=== PATIENT | female | born 1975 | race Caucasian/White ===

== ENCOUNTER 2016-11-28 07:33 | Day surgery (SDC) | payer OTHER ==
[2016-11-27 10:31] VITALS: BMI 39.0
[~2016-11-28 07:33] MED LIST: ceFAZolin SODIUM 1 GM VIAL IVPB ONE
[2016-11-28] MEDS ORDERED: PROPOFOL 20 ML ONE ×2 (07:37)
[2016-11-28] MEDS ORDERED: DEXAMETHASONE SOD PHOSPHATE 4 MG/1 ML VIAL ONE (07:37)
[2016-11-28] MEDS ORDERED: SUCCINYLCHOLINE CHLORIDE 200 MG/10 ML VIAL ONE (07:37)
[2016-11-28] MEDS ORDERED: ceFAZolin SODIUM 1 GM VIAL ONE (07:37)
[2016-11-28] MEDS ORDERED: KETOROLAC TROMETHAMINE 30 MG/1 ML VIAL ONE (07:37)
[2016-11-28] MEDS ORDERED: ROCURONIUM BROMIDE 50 MG/5 ML VIAL ONE (07:37)
[2016-11-28] MEDS ORDERED: SODIUM CHLORIDE 0.9% P/F 10 ML VIAL IJ ONE (07:37)
[2016-11-28] MEDS ORDERED: MIDAZOLAM HCL 2 MG/2 ML SINGLE DOSE VIAL ONE (07:38)
== END 2016-11-28 08:10 | disposition home or self-care (01) ==
LOC: JASUSAT 07:33 → EDSTATUS 08:00 → JASUSAT 08:10
PROVIDERS: ATTEND Obstetrics & Gynecology
PROC: 8E0KXY7 Examination of Musculoskeletal System (ICD-10-PCS; principal; 2016-11-28)
DX: Z53.8 Procedure and treatment not carried out for other reasons (principal)
CPT/HCPCS: 84703; 86850; 86900; 86901

== ENCOUNTER 2016-12-05 06:07 | Inpatient (IN) | payer OTHER ==
[2016-12-03 13:50] VITALS: BMI 39.0
[2016-12-05] MEDS ORDERED: ROPIVACAINE HCL 0.5% 30ML VIAL ONE (07:08)
[2016-12-05] MEDS ORDERED: MIDAZOLAM HCL 2 MG/2 ML SINGLE DOSE VIAL ONE ×2 (07:09)
--- NOTE | 2016-12-05 07:47 | HP ---
Admitting History and Physical - Admission Chief Complaint: Abnormal vaginal bleeding History of Present Illness: 41 yo Para 1, with abnormal vaginal bleeding associated with submucosal myoma is Pre op for abdominal hysterectomy. History Source: Patient Limitations to Obtaining History: No Limitations - Past Medical History ...LMP: 10/20/16 ...: No ...Para: 1 - Past Surgical History Past Surgical History: Yes: None - Smoking History Smoking history: Never smoked Have you smoked in the past 12 months: No - Alcohol/Substance Use Hx Alcohol Use: No History of Substance Use: reports: None - Social History Usual Living Arrangement: Yes: With Spouse History of Recent Travel: No Home Medications - Allergies Allergies/Adverse Reactions: Allergies Allergy/AdvReac Type Severity Reaction Status Date / Time albuterol Allergy tachycardia Verified 12/05/16 06:55 codeine Allergy "HEART Verified 12/05/16 06:55 PALPITATIONS,RASH" - Home Medications Home Medications: Ambulatory Orders Lisinopril 10 mg PO DAILY 01/24/16 Ibuprofen [Motrin -] 200 mg PO PRN PRN 11/27/16 Family Disease History - Family Disease History Family History: Unremarkable Review of Systems - Review of Systems Constitutional: reports: No Symptoms Eyes: reports: No Symptoms HENT: reports: No Symptoms Neck: reports: No Symptoms Cardiovascular: reports: No Symptoms Respiratory: reports: No Symptoms Gastrointestinal: reports: No Symptoms Genitourinary: reports: Vaginal Bleeding Breasts: reports: No Symptoms Reported Musculoskeletal: reports: No Symptoms Integumentary: reports: No Symptoms Neurological: reports: No Symptoms Endocrine: reports: No Symptoms Hematology/Lymphatic: reports: No Symptoms Psychiatric: reports: No Symptoms Pain Intensity: 0 Physical Examination Vital Signs: Vital Signs Temperature 97.9 F 12/05/16 06:50 Pulse Rate 100 H 12/05/16 06:50 Respiratory Rate 18 12/05/16 06:50 Blood Pressure 134/78 12/05/16 06:50 O2 Sat by Pulse Oximetry (%) 99 12/05/16 06:50 Constitutional: Yes: Well Nourished Eyes: Yes: Conjunctiva Clear HENT: Yes: Atraumatic, Normocephalic Neck: Yes: Supple, Trachea Midline Cardiovascular: Yes: Regular Rate and Rhythm Respiratory: Yes: Regular, CTA Bilaterally Gastrointestinal: Yes: Normal Bowel Sounds, Soft Breast(s): Yes: WNL Musculoskeletal: Yes: WNL Extremities: Yes: WNL Neurological: Yes: Alert, Oriented ...Motor Strength: WNL Psychiatric: Yes: Alert, Oriented Problem List - Problems (1) Menorrhagia Code(s): N92.0 - EXCESSIVE AND FREQUENT MENSTRUATION WITH REGULAR CYCLE (2) Submucous myoma of uterus Code(s): D25.0 - SUBMUCOUS LEIOMYOMA OF UTERUS Assessment/Plan Menorrhagia Submucosal myoma of the uterus Pre op for Hysterectomy Consent signed Anesthesia to see Pt
[2016-12-05] MEDS ORDERED: HYDROmorphone HCL CARPU-JECT 2 MG/1 ML DISP.SYRIN IVPB PRN (07:48)
[2016-12-05] MEDS ORDERED: IBUPROFEN 800 MG/8 ML IJ IVPB PRN (07:48)
[2016-12-05] MEDS ORDERED: ceFAZolin SODIUM 1 GM VIAL ONE (07:54)
[2016-12-05] MEDS ORDERED: LIDOCAINE HCL/PF 2% SDV 5ML VIAL ONE (07:54)
[2016-12-05] MEDS ORDERED: PROPOFOL 20 ML ONE ×2 (07:55)
[2016-12-05] MEDS ORDERED: ROCURONIUM BROMIDE 50 MG/5 ML VIAL ONE (07:55)
[2016-12-05] MEDS ORDERED: ceFAZolin SODIUM 1 GM VIAL IVPB ONE (08:02)
[2016-12-05] MEDS ORDERED: DEXAMETHASONE SOD PHOSPHATE 4 MG/1 ML VIAL ONE (08:42)
[2016-12-05] MEDS ORDERED: GLYCOPYRROLATE 0.2 MG/1 ML VIAL ONE (08:42)
[2016-12-05] MEDS ORDERED: NEOSTIGMINE METHYLSULFATE 0.5 MG/ML - 10 ML MDV ONE (08:42)
[2016-12-05] MEDS ORDERED: ONDANSETRON 4 MG/2 ML VIAL IVPUSH PRN (08:54)
[2016-12-05] MEDS ORDERED: DEXAMETHASONE SOD PHOSPHATE 4 MG/1 ML VIAL IVPUSH PRN (08:54)
[2016-12-05] MEDS ORDERED: PROMETHAZINE HCL 25 MG/1 ML VIAL IVPB PRN (08:54)
[2016-12-05] MEDS ORDERED: KETOROLAC TROMETHAMINE 30 MG/1 ML VIAL ONE (09:20)
--- NOTE | 2016-12-05 09:29 | OP ---
Operative Note - Note: Operative Date: 12/05/16 Pre-Operative Diagnosis: Menorrhagia / Leiomyoma of the uterus Operation: Abdominal Hysterectomy / Salpingectomy / Left Oophorectomy Findings: Leiomyoma of the uterus Surgeon: Liliya Pedraza Conservation Worker: Willa Menendez Anesthesia: General Specimens Removed: Uterus / Left ovary and tube / Portion of right tube Estimated Blood Loss (mls): 100
[2016-12-05] MEDS ORDERED: HYDROmorphone *PCA* 10MG/50ML DISP.SYRIN PCA ONE (09:43)
[2016-12-05] MEDS: HYDROmorphone *PCA* 10MG/50ML DISP.SYRIN PCA SCH (10:30)
[2016-12-05] MEDS: CEFAZOLIN 2 GM/D5W 50 ML IVPB SCH (17:16)
[2016-12-05] MEDS: LACTATED RINGERS SOLUTION 1,000 ML IV SCH (17:23)
[2016-12-06] MEDS: CEFAZOLIN 2 GM/D5W 50 ML IVPB SCH (00:18)
[2016-12-06] MEDS: LACTATED RINGERS SOLUTION 1,000 ML IV SCH ×2 (00:20→19:50)
[2016-12-06] MEDS ORDERED: PCA PUMP KEY 1 EACH EACH ONE ×2 (09:03→09:34)
--- NOTE | 2016-12-06 09:33 | PN ---
Progress Note (short form) - Note Progress Note: ANESTHESIA POST-OP CHECK 41F s/p abdominal hysterectomy, bilateral salpingectomy and left oophorectomy with bilateral TAP blocks under general anesthesia, POD #1. No acute complaints , tolerating PO liquids, denies N/V. Nur in place, not yet OOB. Pain 3-4/10 and tolerable. Vital Signs Temperature 98.3 F 12/06/16 06:00 Pulse Rate 86 12/06/16 06:00 Respiratory Rate 18 12/06/16 06:00 Blood Pressure 105/56 12/06/16 06:00 O2 Sat by Pulse Oximetry (%) 99 12/05/16 13:35 Active Medications Dexamethasone Sodium Phosphate (Decadron Injection -) 4 mg IVPUSH ONCE PRN PRN Reason: NAUSEA AND/OR VOMITING Diphenhydramine HCl (Benadryl Injection -) 12.5 mg IVPUSH ONCE PRN PRN Reason: FOR ITCHING Fentanyl (Sublimaze Injection -) 25 mcg IVPUSH [id number] PRN PRN Reason: PAIN Stop: 12/08/16 09:00 Last Admin: 12/05/16 10:00 Dose: 25 mcg Hydromorphone HCl (Dilaudid Injection -) 2 mg IVPB Q4H PRN PRN Reason: PAIN Hydromorphone HCl (Dilaudid Client Relations Specialist -) 0 mg FAN BLADE TRUER FAN BLADE TRUER LYNETTE PRN Reason: Protocol Stop: 12/12/16 08:55 Last Admin: 12/05/16 10:30 Dose: 10 mg Lactated Ringer's (Lactated Ringers Solution) 1,000 mls @ 125 mls/hr IV ASDIR LYNETTE Last Admin: 12/06/16 00:20 Dose: 125 mls/hr Dextrose/Lactated Ringer's (D5-Lr -) 1,000 mls @ 125 mls/hr IV ASDIR LYNETTE Ibuprofen (Caldolor Injection -) 800 mg IVPB Q8H PRN PRN Reason: FEVER Promethazine HCl (Phenergan Injection -) 12.5 mg IVPB Q6H PRN PRN Reason: NAUSEA AND/OR VOMITING Gen: awake, alert No apparent anesthesia complications. Pain well controlled, thu D/C FAN BLADE TRUER and switch to PO analgesics. Continue management as per primary team.
[2016-12-06] MEDS ORDERED: IBUPROFEN 400 MG TABLET (FP) PO PRN (11:38)
--- NOTE | 2016-12-06 11:50 | DS ---
Physical Examination Vital Signs: Vital Signs Temperature 98.3 F 12/06/16 06:00 Pulse Rate 86 12/06/16 06:00 Respiratory Rate 18 12/06/16 06:00 Blood Pressure 105/56 12/06/16 06:00 O2 Sat by Pulse Oximetry (%) 99 12/05/16 13:35 Constitutional: Yes: Well Nourished Eyes: Yes: Conjunctiva Clear HENT: Yes: Atraumatic, Normocephalic Neck: Yes: Supple, Trachea Midline Cardiovascular: Yes: Regular Rate and Rhythm Respiratory: Yes: Regular, CTA Bilaterally Gastrointestinal: Yes: Normal Bowel Sounds Breast(s): Yes: WNL Wound/Incision: Yes: Clean/Dry Neurological: Yes: Alert, Oriented Psychiatric: Yes: Alert, Oriented Discharge Summary Reason For Visit: MENORRHAGIA/SUMUCOSAL MYOMA Current Active Problems Menorrhagia (Acute) Submucous myoma of uterus (Acute) Procedures: Principal: Abdominal Hysterectomy / Salpingectomy / Left Oophorectomy Condition: Good - Instructions Diet, Activity, Other Instructions: Regular diet No driving, no lifting x 4 weeks F/U with MD in 7 days Referrals: Liliya Pedraza MD [Staff Physician] - Disposition: HOME - Home Medications Comprehensive Discharge Medication List: Ambulatory Orders Lisinopril 10 mg PO DAILY 01/24/16 Ibuprofen [Motrin -] 200 mg PO PRN PRN 11/27/16
[2016-12-06] MEDS ORDERED: ACETAMINOPHEN 325 MG TABLET (FP) PO PRN (11:55)
[2016-12-06] MEDS ORDERED: IBUPROFEN 600 MG TABLET (FP) PO PRN (11:55)
--- NOTE | 2016-12-06 12:07 | PN ---
Progress Note (short form) - Note Progress Note: 41 yo Para 1 with h/o Menorrhagia associated with Leiomyoma of the uterus, is status post Hysterectomy. She's doing well; out of be to chair. She tolerates liquid diet. ROS : No Nausea, no vomiting PE : Chest : CTA, no rales ABD : Dressing dry and intact. + incision pain No bleeding EXT : No calf tenderness ASS / PLAN : Post op care Ambulation Motrin PO Regular diet D/C IVF D/C Nur catheter F/U CBC D/C home after dinner Problem List - Problems (1) Menorrhagia Code(s): N92.0 - EXCESSIVE AND FREQUENT MENSTRUATION WITH REGULAR CYCLE (2) Submucous myoma of uterus Code(s): D25.0 - SUBMUCOUS LEIOMYOMA OF UTERUS
[2016-12-06 12:20] LABS: BASOPHIL 0.5 % (0-2.0); EOSINOPHIL 0.4 % (0-4.5); MCH 22.8 pg (25.7-33.7); MCHC 28.7 g/dl (32.0-36.0); MEAN CELL VOLUME 79.5 fl (80-96); MEAN PLT VOLUME 8.2 fl (7.5-11.1); PLATELET COUNT 301 K/MM3 (134-434); RDW 24.1 % (11.6-15.6); WHITE BLOOD COUNT 12.3 K/mm3 (4.0-10.0)
[2016-12-06 13:42] LABS: ANISOCYTOSIS 3+; HYPOCHROMIA 2+; MICROCYTOSIS 2+; PLATELET COMMENT2 NO CLOTTING DETECTED; PLATELET ESTIMATE ADEQUATE (NORMAL); POIKILOCYTOSIS 3+; POLYCHROMASIA 2+; TEAR DROP CELLS 1+
[2016-12-06] MEDS: LISINOPRIL 10 MG TABLET (FP) PO SCH (14:59)
[2016-12-06] MEDS: HYDROmorphone *PCA* 10MG/50ML DISP.SYRIN PCA SCH (19:52)
[2016-12-06] MEDS: DEXTROSE 5%-LACTATED RINGERS 1,000 ML IV SCH ×2 (19:52→19:53)
--- NOTE | 2016-12-06 21:07 | PN ---
Progress Note (short form) - Note Progress Note: 41 yo Para 1 with h/o Menorrhagia associated with Leiomyoma of the uterus, is status post Hysterectomy. Repeat CBC shows evidence of severe Anemia. She admits to Dizziness. ROS : No Nausea, no vomiting PE : Chest : CTA, no rales ABD : Dressing dry and intact. + incision pain No bleeding EXT : No calf tenderness ASS / PLAN : Status post Hysterectomy Severe Anemia Admit to TICKET SPECULATOR Transfuse 4 units of PRBC's Repeat CBC 4 hours after transfusion Problem List - Problems (1) Menorrhagia Code(s): N92.0 - EXCESSIVE AND FREQUENT MENSTRUATION WITH REGULAR CYCLE (2) Submucous myoma of uterus Code(s): D25.0 - SUBMUCOUS LEIOMYOMA OF UTERUS
--- NOTE | 2016-12-07 07:35 | PN ---
Progress Note (short form) - Note Progress Note: 41 yo Para 1 with h/o Menorrhagia associated with Leiomyoma of the uterus, is status post Hysterectomy. She received 4 units of PRBC's, She's doing well. ROS : No dizziness, no fatigue PE : Chest : CTA, no rales ABD : Dressing dry and intact. + incision pain No bleeding EXT : No calf tenderness ASS / PLAN : Status post Hysterectomy Severe Anemia Status post blood transfusion F/U repeat CBC D/C home Problem List - Problems (1) Menorrhagia Code(s): N92.0 - EXCESSIVE AND FREQUENT MENSTRUATION WITH REGULAR CYCLE (2) Submucous myoma of uterus Code(s): D25.0 - SUBMUCOUS LEIOMYOMA OF UTERUS
[2016-12-07 09:01] LABS: BASOPHIL 0.7 % (0-2.0); EOSINOPHIL 1.4 % (0-4.5); MCH 26.7 pg (25.7-33.7); MCHC 33.3 g/dl (32.0-36.0); MEAN CELL VOLUME 80.1 fl (80-96); MEAN PLT VOLUME 8.3 fl (7.5-11.1); NEUTROPHILS 80.8 % (42.8-82.8); PLATELET COUNT 272 K/MM3 (134-434); RDW 19.6 % (11.6-15.6); WHITE BLOOD COUNT 14.4 K/mm3 (4.0-10.0)
[2016-12-07 09:13] VITALS: BP 119/83; PULSE 88; TEMP 98.2
[2016-12-07] MEDS: LISINOPRIL 10 MG TABLET (FP) PO SCH (09:42)
[2016-12-07] MEDS ORDERED: BISACODYL 10 MG SUPP.RECT RC ONE (10:32)
[2016-12-07] MEDS ORDERED: BISACODYL 10 MG SUPP.RECT PR ONE (10:45)
--- NOTE | 2016-12-08 15:44 | PATH ---
Surgical Pathology Report Patient Name: JOSE ZUNIGA [facility]. Rec. #: [id number] /Age/Gender: 1975 (Age: 41) / F Account: [id number] Location: [facility] OBS/RETORT FEEDER GROUND BONE Taken: 12/05/2016 Received: 12/05/2016 Reported: 12/08/2016 Physicians: Liliya Pedraza M.D. Specimen(s) Received A: PORTION OF RIGHT FALLOPIAN TUBE B: UTERUS, LEFT OVARY, LEFT TUBE Clinical History Menorrhagia, fibroid uterus Final Diagnosis A. PORTION OF FALLOPIAN TUBE, RIGHT, PARTIAL SALPINGECTOMY: FIMBRIATED PORTION OF BENIGN FALLOPIAN TUBE WITH FOCAL FIBRINOHEMORRHAGIC ADHESIONS AND COMPLETE CROSS SECTION. B. UTERUS, LEFT TUBE AND OVARY, SUPRACERVICAL ABDOMINAL HYSTERECTOMY, SALPINGO-OOPHORECTOMY: CERVICAL STUMP: ENDOCERVIX WITHOUT SIGNIFICANT PATHOLOGIC CHANGES. ENDOMETRIUM: INACTIVE, WITH HISTOLOGIC FEATURES OF CHRONIC ENDOMETRITIS AND STROMAL CHANGES SUGGESTIVE OF EXOGENOUS HORMONE EFFECT. MYOMETRIUM: FOCAL ADENOMYOSIS (ADENOMYOMA), LEIOMYOMATA WITH FOCAL DEGENERATIVE CHANGES (LARGEST 7.0 CM). UTERINE SEROSA: WITHOUT SIGNIFICANT PATHOLOGIC CHANGES. LEFT FALLOPIAN TUBE: FIBRINOHEMORRHAGIC ADHESIONS AND SMAL PARATUBAL CYSTS. LEFT OVARY: CYSTIC FOLLICLES, SURFACE INCLUSION CYSTS. Electronically Signed Tommy Toscano M.D. Gross Description A. Received in formalin, labeled "portion of right tube" is a 1.2 cm in length fimbriated portion of fallopian tube. The outer surface is neal-pham and smooth. Sectioning reveals an unremarkable lumen. Motel Operator sections are submitted in 2 cassettes as follows: 1-fimbria; 2-cross sections of fallopian tube. B. Received in formalin, labeled "uterus, left tube, left ovary" is a 532 g supracervically amputated uterus with an attached left fallopian tube and left ovary. The specimen measures 11.5 cm from anterior to posterior, 9.8 cm from superior to inferior and 8.4 cm from left to right. The serosa is neal-pink and smooth with focal bulging subserosal nodules. The endometrial cavity measures 7 cm in length and 2 cm from cornu to cornu. The endometrium is hyperemic and averages 0.3 cm in thickness. The myometrium displays multiple intramural nodules, measuring up to 7.0 cm in greatest dimension. The cut surface of the subserosal and intramural nodules displays neal, firm to rubbery parenchyma with whorled architecture. No areas of hemorrhage or necrosis are identified. The remaining myometrium is neal-pink and measures up to 8 cm in thickness. The left fimbriated fallopian tube measures 4 cm in length. The outer surface is neal-pham with tubo-ovarian adhesions. Sectioning reveals a pinpoint lumen. The attached left cystic-appearing ovary measures 4.0 x 3.7 x 2.0 cm. The outer surface is neal-pink and smooth. The cut surface cystic and contains neal serous fluid. No excrescences are identified. Motel Operator sections are submitted in 16 cassettes as follows: 1-cervical stump margin of resection; 1-5-koustdff endomyometrium; 0-6-vcnkzqdmo endomyometrium; 8-5-rxgqicfhjq nodules; 5-51-whiezgl intramural nodule; 11-92-owbutfwszj intramural nodules; 13-left fallopian tube fimbria; 14-cross sections of left fallopian tube; 15-16-left ovary. 12/05/2016 [facility]12/05/2016
--- NOTE | 2016-12-23 21:19 | OP ---
DATE OF OPERATION: 12/05/2016 PREOPERATIVE DIAGNOSES: Menorrhagia, leiomyoma of the uterus. POSTOPERATIVE DIAGNOSES: Menorrhagia, leiomyoma of the uterus. PROCEDURE: Abdominal hysteroscopy, salpingectomy, and left oophorectomy. SURGEON: Liliya Pedraza MD DISPATCH SUPERVISOR: Willa Mcnamara MD ANESTHESIA: General. COMPLICATIONS: None. ESTIMATED BLOOD LOSS: 100 mL. PATHOLOGY: Uterus, left ovary and tube, and portion of the right tube. DESCRIPTION OF PROCEDURE: The patient was taken to the operating room where general anesthesia was administered. The patient was then prepped and draped in proper sterile fashion. A Pfannenstiel skin incision was made and carried down to the underlying layer of fascia. The fascia was incised bilaterally with cautery with the muscle of the anterior abdominal wall in the midline using the cautery. The peritoneum was identified. It was then grasped with 2 pickups, elevated, and entered sharply with the Metzenbaum scissors. The pelvis was examined, and there was an enlarged uterus noted along with a left enlarged ovarian cyst. Then 2 pean clamps were placed on the cornua and used for retraction. The round ligament on both sides was clamped using the LigaSure device, burned, and cut. The anterior leaf of the broad ligament was incised along the bladder reflection to the midline from both sides. The bladder was gently dissected off the lower uterine segment and the cervix with a sponge stick. The utero-ovarian ligament on the right side was clamped, burned, and cut using the LigaSure device. On the left side, the infundibulopelvic ligament was clamped, burned, and cut using the LigaSure device. Hemostasis was obtained. The uterine arteries were skeletonized bilaterally and clamped, burned, and cut using the LigaSure device. Both tubes were also removed. The cervix stump was closed with [id number]-[id number] stitches of 0 Vicryl. The pelvis was completely irrigated. Interceed was placed over the cervical stump, and the fascia was closed with running 0 Vicryl. Hemostasis was obtained. The skin was closed in subcuticular fashion with 3-0 Vicryl. The sponge, lap, needle, instrument counts were correct x2. The patient was taken to PACU in stable condition. Debi HUGO/[id number] MTDD
== END 2016-12-07 11:15 | disposition home or self-care (01) | DRG 519 ==
LOC: JASUSAT 06:07 → EDSTATUS 07:30 → J3W 13:30 → JASUSAT 14:03 → J3W 12-06 14:02
PROVIDERS: ADMIT Obstetrics & Gynecology; ATTEND Obstetrics & Gynecology
PROC: 0UTC0ZZ Resection of Cervix, Open Approach (ICD-10-PCS; 2016-12-05)
PROC: 0UT10ZZ Resection of Left Ovary, Open Approach (ICD-10-PCS; 2016-12-05)
PROC: 0UT70ZZ Resection of Bilateral Fallopian Tubes, Open Approach (ICD-10-PCS; 2016-12-05)
PROC: 0UT90ZZ Resection of Uterus, Open Approach (ICD-10-PCS; principal; 2016-12-05 07:30)
PROC: 30233N1 Transfusion of Nonautologous Red Blood Cells into Peripheral Vein, Percutaneous Approach (ICD-10-PCS; 2016-12-06)
DX: D25.0 Submucous leiomyoma of uterus (principal); N92.0 Excessive and frequent menstruation with regular cycle; D64.9 Anemia, unspecified
CPT/HCPCS: 36415; 36430; 84703; 85025; 86850; 86900; 86901; 86922; 88305-TC; 88307-TC; 94010; 94760; P9038; P9058

== ENCOUNTER 2018-03-09 16:25 | Emergency (ER) | payer OTHER ==
[2018-03-09 16:47] VITALS: BP 139/91; PULSE 88; TEMP 98.4; BMI 39.0
--- NOTE | 2018-03-09 16:47 | PDOC ---
Rapid Medical Evaluation Time Seen by Provider: 03/09/18 16:44 Medical Evaluation: Allergies Allergy/AdvReac Type Severity Reaction Status Date / Time albuterol Allergy tachycardia Verified 12/05/16 06:55 codeine Allergy "HEART Verified 12/05/16 06:55 PALPITATIONS,RASH" 03/09/18 16:44 Pt. presents with L ear pain, unable to hear out of her L ear for 4 days. Oozed reddish material Exam: ambulatory, NAD. No tenderness to the L tragus Orders: urine preg Pt. to proceed to FT for further evaluation
--- NOTE | 2018-03-09 17:06 | PDOC ---
History of Present Illness - General Chief Complaint: Ear Problem Stated Complaint: EAR PAIN Time Seen by Provider: 03/09/18 16:44 History Source: Patient Exam Limitations: No Limitations - History of Present Illness Initial Comments: 03/09/18 17:04 42-year-old woman with past medical history of NIDDM, hypertension presents emergency Department with decreased hearing and ear pain in her left ear for 4 days. Patient states she's been trying [id number]-[id number] earwax removal with minimal relief. Patient denies any fevers, chills, sore throats, headaches, dizziness. Past History - Past Medical History Allergies/Adverse Reactions: Allergies Allergy/AdvReac Type Severity Reaction Status Date / Time albuterol Allergy tachycardia Verified 03/09/18 16:44 codeine Allergy "HEART Verified 03/09/18 16:44 PALPITATIONS,RASH" Home Medications: Ambulatory Orders Lisinopril 10 mg PO DAILY 01/24/16 Anemia: Yes Asthma: ("SOMETHING "LIKE" ASTHMA) Cancer: No Cardiac Disorders: No CVA: No COPD: No CHF: No Dementia: No Diabetes: Yes GI Disorders: No Disorders: No HTN: Yes Hypercholesterolemia: Yes Liver Disease: No Seizures: No Thyroid Disease: No - Surgical History Cholecystectomy: Yes - Suicide/Smoking/Psychosocial Hx Smoking History: Never smoked Have you smoked in the past 12 months: No Information on smoking cessation initiated: No Hx Alcohol Use: No Drug/Substance Use Hx: No Substance Use Type: None Hx Substance Use Treatment: No Review of Systems - Review of Systems Able to Perform ROS?: Yes Is the patient limited Cymro proficient: No Constitutional: No: Symptoms Reported HEENTM: Yes: See HPI Respiratory: No: Symptoms reported Cardiac (ROS): No: Symptoms Reported ABD/GI: No: Symptoms Reported : No: Symptoms Reported Musculoskeletal: No: Symptoms Reported Integumentary: No: Symptoms Reported Neurological: No: Symptoms reported Endocrine: No: Symptoms Reported Hematologic/Lymphatic: No: Symptoms Reported *Physical Exam - Vital Signs Last Vital Signs Temp Pulse Resp BP Pulse Ox 98.4 F 88 18 139/91 100 03/09/18 16:44 03/09/18 16:44 03/09/18 16:44 03/09/18 16:44 03/09/18 16:44 - Physical Exam General Appearance: Yes: Appropriately Dressed. No: Apparent Distress HEENT: positive: Other (Impacted cerumen bilaterally) Respiratory/Chest: positive: Lungs Clear, Normal Breath Sounds. negative: Respiratory Distress, Accessory Muscle Use Neurologic: positive: Alert, Normal Response Medical Decision Making - Medical Decision Making 03/09/18 17:05 A/P: 42-year-old woman with impacted cerumen bilaterally Instill hydrogen peroxide into bilateral ears and reassess. 03/09/18 17:55 Impacted cerumen removed. TMs pearly pham with appropriate light reflex. External auditory canals clear without erythema or exudates. Patient states her hearing has improved since removal of cerumen. Patient verbalizes understanding of discharge instructions *DC/Admit/Observation/Transfer Diagnosis at time of Disposition: Impacted cerumen of both ears - Discharge Dispostion Disposition: HOME Condition at time of disposition: Stable Decision to Admit order: No - Referrals Referrals: Ngoc Lopez MD [Primary Care Provider] - - Patient Instructions Printed Discharge Instructions: Cerumen Impaction Additional Instructions: Return to the emergency department for any concerns. Evaluation here is in complete please follow-up with her primary doctor within the next 7 days for reevaluation. Print Language: BERMUDIAN - Post Discharge Activity
== END 2018-03-09 18:01 | disposition home or self-care (01) ==
LOC: JERFT 16:25
PROC: 3E1B78Z Irrigation of Ear using Irrigating Substance, Via Natural or Artificial Opening (ICD-10-PCS; principal; 2018-03-09)
PROC: 3E1B78Z Irrigation of Ear using Irrigating Substance, Via Natural or Artificial Opening (ICD-10-PCS; 2018-03-09)
DX: H61.23 Impacted cerumen, bilateral (principal); I10 Essential (primary) hypertension; E11.9 Type 2 diabetes mellitus without complications; E78.00 Pure hypercholesterolemia, unspecified; Z79.84 Long term (current) use of oral hypoglycemic drugs
CPT/HCPCS: 69209-50; 99281-25

== ENCOUNTER 2019-07-03 03:44 | Emergency (ER) | payer OTHER ==
[2019-07-03 04:17] VITALS: BP 158/93; PULSE 85; TEMP 98.3; BMI 43.0
[2019-07-03] MEDS ORDERED: diphenhydrAMINE HCL 25 MG CAPSULE (FP) PO ONE ×2 (05:15→05:35)
[2019-07-03] MEDS ORDERED: IPRATROPIUM BR 0.02% 0.5 MG/2.5 ML VIAL.NEB. NEB ONE ×2 (05:16→05:29)
[2019-07-03] MEDS ORDERED: DEXAMETHASONE LIQUID 0.5 MG/5 ML PO ONE (05:16)
--- NOTE | 2019-07-03 05:25 | PDOC ---
History of Present Illness - General Chief Complaint: Respiratory Stated Complaint: BRONCHITIS Time Seen by Provider: 07/03/19 04:07 - History of Present Illness Initial Comments: 07/03/19 05:21 43y/o F hx of NIDDM, HTN, HLD, asthma and anemia, presents to the ED with 3 days of nasal congestion and dry non-productive cough. She has been unable to sleep due to the congestion, and has had no relief with nyquil or use of cepacol. She denies any fevers, chills, chest pain,shortness of breath, hemopytsis, hx of blood clots, leg swelling. 07/03/19 05:25 Past History - Past Medical History Allergies/Adverse Reactions: Allergies Allergy/AdvReac Type Severity Reaction Status Date / Time albuterol [From Ventolin HFA] Allergy Verified 07/03/19 04:17 codeine Allergy "HEART Verified 07/03/19 04:17 PALPITATIONS,RASH" Home Medications: Ambulatory Orders Lisinopril 10 mg PO DAILY 01/24/16 Albuterol Sulfate Inhaler - [Ventolin HFA Inhaler -] 1 - 2 inh PO Q4H #1 inhaler 10/03/18 Loratadine 10 mg PO ONCE 30 Days #30 tab.rapdis 07/03/19 Anemia: Yes Asthma: ("SOMETHING "LIKE" ASTHMA) Cancer: No Cardiac Disorders: No CVA: No COPD: No CHF: No Dementia: No Diabetes: Yes GI Disorders: No Disorders: No HTN: Yes Hypercholesterolemia: Yes Liver Disease: No Seizures: No Thyroid Disease: No - Surgical History Cholecystectomy: Yes - Suicide/Smoking/Psychosocial Hx Smoking History: Never smoked Have you smoked in the past 12 months: No Information on smoking cessation initiated: No Hx Alcohol Use: No Drug/Substance Use Hx: No Substance Use Type: None Hx Substance Use Treatment: No Review of Systems - Review of Systems Constitutional: No: Chills, Fever HEENTM: No: Blurred Vision Respiratory: Yes: Cough. No: Hemoptysis Cardiac (ROS): No: Chest Pain ABD/GI: No: Abdominal Distended, Nausea, Vomiting : No: Burning, Dysuria Musculoskeletal: Yes: Back Pain Integumentary: No: Bruising, Change in Color Neurological: Yes: Headache. No: Numbness *Physical Exam - Vital Signs Last Vital Signs Temp Pulse Resp BP Pulse Ox 98.3 F 85 18 158/93 97 07/03/19 04:10 07/03/19 04:10 07/03/19 04:10 07/03/19 04:10 07/03/19 04:10 - Physical Exam Comments: 07/03/19 05:20 GENERAL: Awake, alert, and fully oriented, in no acute distress HEAD: No signs of trauma, normocephalic, atraumatic EYES: PERRLA, EOMI, sclera anicteric, conjunctiva clear ENT: Auricles normal inspection, hearing grossly normal, nares patent, oropharynx clear without exudates. Moist mucosa NECK: Normal ROM, supple, no lymphadenopathy, JVD, or masses LUNGS: no respiratory distress, no accessory muscle use, wheezes bilaterally HEART: Regular rate and rhythm, normal S1 and S2, no murmurs, rubs or gallops, peripheral pulses normal and equal bilaterally. ABDOMEN: Soft, nontender, normoactive bowel sounds. No guarding, no rebound. No masses EXTREMITIES : Normal inspection, Normal range of motion, no edema. No clubbing or cyanosis NEUROLOGICAL: Cranial nerves II through XII grossly intact. Normal speech, normal gait, no focal sensorimotor deficits SKIN: Warm, Dry, normal turgor, no rashes or lesions noted Medical Decision Making - Medical Decision Making 07/03/19 05:28 43y/o F hx of NIDDM, HTN, HLD, asthma and anemia, presents to the ED with 3 days of nasal congestion and dry non-productive cough. 07/03/19 05:33 Meds: diphenhydramine, ipratropium neb, decadron 07/03/19 06:24 Pt reassesed, improved and feeling better. Is ready to go home. Blood pressure on arrival was elevated will give home dose of lisinopril 10mg before going home. - Given prescription for loratadine to use at home. *DC/Admit/Observation/Transfer Diagnosis at time of Disposition: Acute allergic rhinitis, Nasal congestion - Discharge Dispostion Disposition: HOME Condition at time of disposition: Stable Decision to Admit order: No - Prescriptions Prescriptions: Loratadine 10 mg PO ONCE 30 Days #30 tab.rapdis - Referrals Referrals: Fallon Shields MD [Primary Care Provider] - - Patient Instructions Printed Discharge Instructions: DI for Allergic Rhinitis Additional Instructions: You were seen in the ER for nasal congestion Take the medications that have been prescribed to you as directed. RETURN TO THE ER: If you experience worsening symptoms, fever, chills, increasing cough. - Post Discharge Activity
[2019-07-03] MEDS ORDERED: DEXAMETHASONE SOD PHOSPHATE 10 MG/1 ML VIAL ONE (05:29)
[2019-07-03] MEDS ORDERED: LISINOPRIL 10 MG TABLET (FP) PO ONE (06:25)
[2019-07-03] MEDS ORDERED: LISINOPRIL 5 MG TABLET (FP) ONE (06:31)
--- NOTE | 2019-07-03 06:48 | PDOC ---
Attending Attestation - Resident Resident Name: Delicia Navarrete - ED Attending Attestation I have performed the following: I have examined & evaluated the patient, The case was reviewed & discussed with the resident, I agree w/resident's findings & plan - HPI HPI: 07/03/19 06:43 Pt comes with seasonal allergies. States that she gets loratadine regularly for this but she has none. She is congested. Afebrile. 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 She has no allergies to food or pets etc. Only pollen and change of weather allergies. No rashes and no N/D/V No chest pain. Pt has HTN because she states that she lacks sleep due to stuffed nose and that raises her BP; she is compliant with her lisinopril that normally keeps her BP in check. - Physicial Exam PE: 07/03/19 06:46 Agree with resident exam Afebrile PERRLA; Right TM wax occlusion; left TM clear Pharynx normal Heart RRR Lungs CTAB Abd soft NT ND - Medical Decision Making 07/03/19 06:47 Home with loratadine; pt feeling better with benadryl in the ER.
== END 2019-07-03 06:51 | disposition home or self-care (01) ==
LOC: JER 03:44
DX: J30.9 Allergic rhinitis, unspecified (principal); I10 Essential (primary) hypertension; E78.5 Hyperlipidemia, unspecified; E11.9 Type 2 diabetes mellitus without complications; J45.909 Unspecified asthma, uncomplicated; D64.9 Anemia, unspecified
CPT/HCPCS: 99282-25

== ENCOUNTER 2020-05-04 23:05 | Emergency (ER) | payer OTHER ==
[2020-05-04 23:12] VITALS: BMI 39.0
[2020-05-04] MEDS ORDERED: ALBUTEROL SO4 2.5/IPRATROPIUM 0.5 INH SOL 3 ML VIAL.NEB. NEB ONE ×2 (23:13→23:52)
[2020-05-04] MEDS ORDERED: predniSONE 20 MG TABLET (UD) PO ONE (23:13)
--- NOTE | 2020-05-04 23:13 | PDOC ---
Rapid Medical Evaluation Time Seen by Provider: 05/04/20 23:08 Medical Evaluation: Allergies Allergy/AdvReac Type Severity Reaction Status Date / Time albuterol [From Ventolin HFA] Allergy Verified 07/03/19 04:17 codeine Allergy "HEART Verified 07/03/19 04:17 PALPITATIONS,RASH" 05/04/20 23:08 Pt with PMH of asthma, presents to the ER for shortness of breath for one week. She states she only takes claratin for her asthma. Exam:expiatory wheezing b/l Orders: duoneb, prednisone, cxr Pt to go to the ER for further evaluation Discharge Disposition - Diagnosis Asthma Qualifiers: Asthma severity: mild Asthma persistence: intermittent Asthma complication type: with acute exacerbation Qualified Code(s): J45.21 - Mild intermittent asthma with (acute) exacerbation - Referrals - Patient Instructions - Post Discharge Activity
[2020-05-04] MEDS ORDERED: predniSONE 20 MG TABLET (UD) ONE (23:51)
--- NOTE | 2020-05-05 00:09 | PDOC ---
Attending Attestation - Resident Resident Name: Minnie Cortés - HPI HPI: 05/11/20 17:22 pt presents to the ED complaining of wheezing and shortness of breath similar to previous asthma exacerbations. Symptoms resolved after nebs and steroids. No previous hospitalizations for asthma 05/11/20 18:12 - Physicial Exam PE: 05/11/20 18:13 Agree with resident exam. patient is well appearing and in no acute distress. speaking in complete sentences. Lungs are clear. - Medical Decision Making 05/11/20 18:14 pt presents to the ED complaining of wheezing and shortness of breath similar to previous asthma exacerbations. Symptoms resolved after nebs and steroids. Will discharge home with steroids and instructions to return to the ED for worsening symptoms. Discharge - Discharge Information Problems reviewed: Yes Clinical Impression/Diagnosis: Asthma Qualifiers: Asthma severity: mild Asthma persistence: intermittent Asthma complication type: with acute exacerbation Qualified Code(s): J45.21 - Mild intermittent asthma with (acute) exacerbation Acute asthma exacerbation Qualifiers: Asthma severity: mild Asthma persistence: unspecified Qualified Code(s): J45.901 - Unspecified asthma with (acute) exacerbation Allergic rhinitis Qualifiers: Allergic rhinitis trigger: unspecified Allergic rhinitis seasonality: seasonal Qualified Code(s): J30.2 - Other seasonal allergic rhinitis Condition: Improved Disposition: HOME - Additional Discharge Information Prescriptions: predniSONE [Deltasone -] 40 mg PO DAILY 5 Days #10 tablet Albuterol Sulfate Inhaler - [Ventolin HFA Inhaler -] 1 - 2 inh PO Q4H #1 inhaler Cetirizine HCl [Zyrtec -] 10 mg PO DAILY #30 tablet - Follow up/Referral Referrals: Amando Soler II, DO [Primary Care Provider] - - Patient Discharge Instructions Patient Printed Discharge Instructions: DI for Asthma -- Adult, DI for Allergic Rhinitis Additional Instructions: You were seen in the ER today for asthma exacerbation. The results of your imaging today was normal. Please follow-up with your primary care doctor within 1-2 days to discuss your visit and make sure your symptoms have improved. Please return to the ER if you have any worsening shortness of breath or wheezing, development of fevers or chills, loss of consciousness, inability to tolerate food or fluids, or any other concerns. I have sent medications to your pharmacy. Please take these medications as prescribed. - Post Discharge Activity
--- NOTE | 2020-05-05 00:44 | PDOC ---
History of Present Illness - General Chief Complaint: Respiratory Stated Complaint: ASTHMA Time Seen by Provider: 05/04/20 23:08 History Source: Patient Exam Limitations: No Limitations - History of Present Illness Initial Comments: Pt is a 44 yo F, with PMH of intermittent asthma (albuterol MDI, no recent steroids), seasonal allergies, and HTN, who is presenting with complaints of dry cough x1 week, and chest tightness with wheezing today. Pt states she gets asthma exacerbations during the summer, and has run out of her albuterol MDI and loratadine. 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 Pt has not had an exacerbation or steroid use for over a year, and has never had an admission or intubation. Pt denies any fevers/chills, headache, vision changes, syncope, chest pain, palpitations, nausea/vomiting, abdominal pain, urinary symptoms, diarrhea/constipation, or leg swelling. Allergies: NKDA PCP: Dr. Soler Social: Pt denies any cigarette, alcohol, or drug use. Pt denies any recent travel or sick contacts. Surgical: no relevant history. Family: no relevant history. 05/05/20 20:05 Past History - Travel History Traveled outside of the country in the last 30 days: No Close contact w/someone who was outside of country & ill: No - Medical History Allergies/Adverse Reactions: Allergies Allergy/AdvReac Type Severity Reaction Status Date / Time albuterol [From Ventolin HFA] Allergy Verified 05/04/20 23:12 codeine Allergy "HEART Verified 05/04/20 23:12 PALPITATIONS,RASH" Home Medications: Ambulatory Orders Lisinopril 10 mg PO DAILY 01/24/16 Albuterol Sulfate Inhaler - [Ventolin HFA Inhaler -] 1 - 2 inh PO Q4H #1 inhaler 10/03/18 Loratadine 10 mg PO ONCE 30 Days #30 tab.rapdis 07/03/19 Albuterol Sulfate Inhaler - [Ventolin HFA Inhaler -] 1 - 2 inh PO Q4H #1 inhaler 05/05/20 Cetirizine HCl [Zyrtec -] 10 mg PO DAILY #30 tablet 05/05/20 predniSONE [Deltasone -] 40 mg PO DAILY 5 Days #10 tablet 05/05/20 Anemia: Yes Asthma: ("SOMETHING "LIKE" ASTHMA) Cancer: No Cardiac Disorders: No CVA: No COPD: No CHF: No Dementia: No Diabetes: Yes GI Disorders: No Disorders: No HTN: Yes Hypercholesterolemia: Yes Liver Disease: No Seizures: No Thyroid Disease: No - Surgical History Cholecystectomy: Yes - Psycho-Social/Smoking History Smoking History: Never smoked Have you smoked in the past 12 months: No - Substance Abuse Hx (Audit-C & DAST Scrn) How often the patient has a drink containing alcohol: Never Score: In Men: 4 or > Positive; In Women: 3 or > Positive: 0 Screen Result (Pos requires Nsg. Audit-10AR): Negative Respiratory Specific PMHX - Complaint Specific PMHX Hx Airway Support: No Hx Intubation: No Hx Asthma: Yes Hx Smoking Exposure: No Hx Allergic Rhinitis: Yes Hx Exposure to Respiratory Irritants: Yes (school bus exhaust) Hx Bronchitis: No Hx Pneumonia: No Hx Pulmonary Embolus: No Hx TB (Tuberculosis): No Review of Systems - Review of Systems Able to Perform ROS?: Yes Is the patient limited Greek proficient: No Constitutional: Yes: Weight Stable. No: Chills, Diaphoresis, Fever, Loss of Appetite, Malaise, Weakness HEENTM: No: Recent change in vision, Nose Congestion, Throat Pain, Throat Swelling, Difficulty Swallowing Respiratory: Yes: Shortness of Breath, Wheezing. No: Cough, Orthopnea, Productive cough, Hemoptysis Cardiac (ROS): Yes: Chest Tightness. No: Chest Pain, Edema, Irregular Heart Rate, Lightheadedness, Palpitations, Syncope ABD/GI: No: Constipated, Diarrhea, Nausea, Poor Appetite, Poor Fluid Intake, Vomiting : No: Burning, Dysuria, Flank Pain, Hematuria, Pain, Urgency Musculoskeletal: No: Back Pain Integumentary: No: Rash Neurological: No: Headache, Numbness, Weakness, Unsteady Gait, Dizziness Psychiatric: No: Sleep Pattern Change, Change in Appetite Endocrine: No: Increased Urine, Change in Weight Hematologic/Lymphatic: No: Anemia, Blood Clots, Easy Bleeding, Easy Bruising All Other Systems: Reviewed and Negative *Physical Exam - Vital Signs Last Vital Signs Temp Pulse Resp BP Pulse Ox 98 F 91 H 18 155/86 98 05/04/20 23:09 05/04/20 23:09 05/04/20 23:09 05/04/20 23:09 05/04/20 23:09 - Physical Exam Vitals stable, pt afebrile. Pt in NAD, obese body habitus. Pt alert and oriented x3. insurance claims adjuster generally intact, muscular strength and sensation intact. No midline spinal tenderness, step-offs, or crepitus. Head normocephalic, atraumatic. Eyes PERRLA, EOMI. Oropharynx without erythema or exudates, no LAD b/l. No nasal congestion. Hearing intact. Clear heart sounds, S1/S2, no JVD, b/l pedal edema, or heart murmur. Pt able to speak in full sentences. Mild expiratory wheezing b/l, with no crackles, rales, or accessory muscle use. No abdominal or CVA tenderness to palpation, no rebound, no guarding. Abdomen soft, non-distended, and with normoactive bowel sounds. Skin without jaundice or rash. 05/05/20 20:09 ED Treatment Course - Medications Given in the ED: ED Medications Discontinued Medications Generic Name Dose Route Start Last Admin Trade Name Freq PRN Reason Stop Dose Admin Albuterol/Ipratropium 1 amp 05/04/20 23:13 05/05/20 00:10 Duoneb - NEB 05/04/20 23:14 1 amp ONCE ONE Administration Prednisone 40 mg 05/04/20 23:13 05/05/20 00:05 Deltasone - PO 05/04/20 23:14 40 mg ONCE ONE Administration Medical Decision Making - Medical Decision Making Pt was seen at bedside, also will be seen by attending Dr. Gil. Pt presenting with wheezing, has mild intermittent asthma based on symptoms and frequency of medication use. Pt without hypoxia, PERC negative. Boggy nasal turbinates and congestion, likely exacerbated by weather and seasonal allergies. Provided 40 mg PO prednisone and albuterol nebs for improvement of wheezing. Will continue to reassess pt and monitor for symptomatic improvement. Chest x-ray without acute pathology (obtained due to dry cough x1 week, no b/l infiltrates suggestive of COVID) Pt improved after interventions. Ambulatory sat 98-99%. Provided albuterol inhaler, pred 40 mg x5 days, and zyrtec to pts pharmacy Discussed saline flushes, proper control of allergies to help with asthma exacerbation, will see PCP or return to ER if worsening. May need to increase to controller meds (low dose ICS) if symptoms more frequent. 05/05/20 20:10 Discharge - Discharge Information Problems reviewed: Yes Clinical Impression/Diagnosis: Asthma Qualifiers: Asthma severity: mild Asthma persistence: intermittent Asthma complication type: with acute exacerbation Qualified Code(s): J45.21 - Mild intermittent asthma with (acute) exacerbation Acute asthma exacerbation Qualifiers: Asthma severity: mild Asthma persistence: unspecified Qualified Code(s): J45.901 - Unspecified asthma with (acute) exacerbation Allergic rhinitis Qualifiers: Allergic rhinitis trigger: unspecified Allergic rhinitis seasonality: seasonal Qualified Code(s): J30.2 - Other seasonal allergic rhinitis Condition: Improved Disposition: HOME - Admission No - Additional Discharge Information Prescriptions: predniSONE [Deltasone -] 40 mg PO DAILY 5 Days #10 tablet Albuterol Sulfate Inhaler - [Ventolin HFA Inhaler -] 1 - 2 inh PO Q4H #1 inhaler Cetirizine HCl [Zyrtec -] 10 mg PO DAILY #30 tablet - Follow up/Referral Referrals: Amando Soler II, DO [Primary Care Provider] - - Patient Discharge Instructions Patient Printed Discharge Instructions: DI for Asthma -- Adult, DI for Allergic Rhinitis Additional Instructions: You were seen in the ER today for asthma exacerbation. The results of your imaging today was normal. Please follow-up with your primary care doctor within 1-2 days to discuss your visit and make sure your symptoms have improved. Please return to the ER if you have any worsening shortness of breath or wheezing, development of fevers or chills, loss of consciousness, inability to tolerate food or fluids, or any other concerns. I have sent medications to your pharmacy. Please take these medications as prescribed. - Post Discharge Activity
[2020-05-05 01:52] VITALS: BP 133/81; PULSE 82; TEMP 97.6
== END 2020-05-05 01:35 | disposition home or self-care (01) ==
LOC: JER 23:05
PROC: 3E0F7GC Introduction of Other Therapeutic Substance into Respiratory Tract, Via Natural or Artificial Opening (ICD-10-PCS; principal; 2020-05-04)
DX: J45.21 Mild intermittent asthma with (acute) exacerbation (principal); J30.2 Other seasonal allergic rhinitis
CPT/HCPCS: 71046-TC-FY; 99283-25

== ENCOUNTER 2021-10-07 13:39 | Emergency (ER) | payer OTHER ==
[2021-10-07 13:47] VITALS: BP 135/82; PULSE 96; TEMP 98.9; BMI 31.2
[2021-10-07] MEDS ORDERED: METHOCARBAMOL 500 MG TABLET PO ONE (14:50)
[2021-10-07] MEDS ORDERED: KETOROLAC TROMETHAMINE 30 MG/1 ML VIAL IM ONE (14:50)
[2021-10-07] MEDS ORDERED: KETOROLAC TROMETHAMINE 30 MG/1 ML VIAL ONE (14:55)
[2021-10-07] MEDS ORDERED: METHOCARBAMOL 500 MG TABLET ONE (14:55)
== END 2021-10-07 15:04 | disposition home or self-care (01) ==
LOC: JERFT 13:39
PROC: 3E0233Z Introduction of Anti-inflammatory into Muscle, Percutaneous Approach (ICD-10-PCS; principal; 2021-10-07)
DX: M25.551 Pain in right hip (principal); M54.50 Low back pain, unspecified
CPT/HCPCS: 73523-TC-FY; 99284-25

== ENCOUNTER 2022-04-19 22:02 | Inpatient (IN) | payer OTHER ==
[2022-04-19 22:27] VITALS: BMI 29.9
[2022-04-20] MEDS ORDERED: ACETAMINOPHEN 1000 MG/100 ML BAG IVPB ONE (00:16)
[2022-04-20] MEDS ORDERED: FAMOTIDINE 20 MG/50 ML IVPB 20 MG/50 ML MG IVPB ONE ×2 (00:16→02:17)
[2022-04-20] MEDS ORDERED: ONDANSETRON 4 MG/2 ML VIAL IVPUSH ONE (00:16)
[2022-04-20] MEDS ORDERED: MAG HYDROX/AL HYDROX/SIMETH -MYLANTA- ORAL SUSPENSION PO ONE (00:16)
[2022-04-20 01:20] LABS: CHLORIDE 96 mmol/L (98-107); SODIUM 134 mmol/L (136-145)
[2022-04-20 01:22] LABS: CALCIUM 9.5 mg/dL (8.5-10.1)
[2022-04-20 01:23] LABS: ALBUMIN 3.8 g/dl (3.4-5.0); ANION GAP 11 MMOL/L (8-16); BLOOD UREA NITROGEN 12.3 mg/dL (7-18); CO2 27 mmol/L (21-32); LIPASE 127 U/L (73-393)
[2022-04-20 01:26] LABS: CREATININE 0.9 mg/dL (0.55-1.3); SGOT/AST 26 U/L (15-37); SGPT/ALT 50 U/L (13-61)
[2022-04-20 01:27] LABS: BILIRUBIN,TOTAL 0.5 mg/dL (0.2-1); TOT PROT 7.7 g/dl (6.4-8.2)
[2022-04-20 01:28] LABS: ALK PHOS 126 U/L (45-117)
[2022-04-20 01:48] LABS: HEMATOCRIT 44.4 % (32.4-45.2); HEMOGLOBIN 14.9 GM/dL (10.7-15.3); MCHC 33.5 g/dl (32.0-36.0); MEAN CELL VOLUME 86.5 fl (80-96); MEAN PLT VOLUME 8.5 fl (7.5-11.1); PLATELET COUNT 289 10^3/uL (134-434); RBC 5.13 M/mm3 (3.60-5.2); RDW 13.6 % (11.6-15.6); WHITE BLOOD COUNT 25.8 K/mm3 (4.0-10.0)
[2022-04-20 01:50] LABS: GLUCOSE,RANDOM 489 mg/dL (74-106)
[2022-04-20] MEDS ORDERED: ACETAMINOPHEN INJECTION 100 ML IVPB ONE (02:17)
[2022-04-20] MEDS ORDERED: MAG HYDROX/AL HYDROX/SIMETH 30 ML UNIT-DOSE CUP ONE (02:17)
[2022-04-20] MEDS ORDERED: ONDANSETRON 4 MG/2 ML VIAL ONE (02:17)
[2022-04-20] MEDS ORDERED: INSULIN REGULAR HUMAN 100 UNITS/ML *VIAL SQ ONE (02:30)
[2022-04-20 02:36] LABS: ANISOCYTOSIS 1+; MACROCYTOSIS 1+; ROULEAU 1+
[2022-04-20 06:22] LABS: PH,URINE 5.5 (5.0-8.0); URINE APPEARANCE CLEAR; URINE BILIRUBIN NEGATIVE (NEGATIVE); URINE COLOR YELLOW; URINE GLUCOSE (UA) 3+ (NEGATIVE); URINE KETONE TRACE (NEGATIVE); URINE LEUK ESTERASE NEGATIVE (NEGATIVE); URINE NITRITE NEGATIVE (NEGATIVE); URINE PROTEIN NEGATIVE (NEGATIVE); URINE UROBILINOGEN 0.2 mg/dL (0.2-1.0)
[2022-04-20] MEDS ORDERED: ACETAMINOPHEN 1000 MG/100 ML BAG IVPB PRN (08:57)
[2022-04-20] MEDS: LISINOPRIL 10 MG TABLET PO SCH (10:22)
[2022-04-20] MEDS: METHOCARBAMOL 500 MG TABLET PO SCH ×2 (10:23→21:53)
[2022-04-20] MEDS: SODIUM CHLORIDE 1,000 ML IV SCH ×2 (10:38→21:53)
[2022-04-20] MEDS: INSULIN SLIDING SCALE (NOVOLOG) 1 VIAL SQ SCH ×2 (12:19→17:12)
[2022-04-20 13:22] LABS: HEMOGLOBIN 13.7 GM/dL (10.7-15.3); MCH 28.7 pg (25.7-33.7); MCHC 33.4 g/dl (32.0-36.0); MEAN CELL VOLUME 85.9 fl (80-96); MEAN PLT VOLUME 8.3 fl (7.5-11.1); PLATELET COUNT 271 10^3/uL (134-434); RBC 4.77 M/mm3 (3.60-5.2); RDW 13.6 % (11.6-15.6); WHITE BLOOD COUNT 20.2 K/mm3 (4.0-10.0)
[2022-04-20 13:33] LABS: CHLORIDE 99 mmol/L (98-107); SODIUM 135 mmol/L (136-145)
[2022-04-20 13:35] LABS: ANION GAP 8 MMOL/L (8-16); CALCIUM 9.3 mg/dL (8.5-10.1); CO2 28 mmol/L (21-32)
[2022-04-20 13:39] LABS: CREATININE 0.7 mg/dL (0.55-1.3)
[2022-04-20 13:43] LABS: BLOOD UREA NITROGEN 8.7 mg/dL (7-18)
[2022-04-20 13:52] LABS: GLUCOSE,RANDOM 410 mg/dL (74-106)
[2022-04-20 14:32] LABS: ANISOCYTOSIS 0; HELMET CELLS 0; HOWELL-JOLLY BODIES 0; MACROCYTOSIS 0; OVALOCYTE 0; ROULEAU 0; SICKELED CELLS 0; TARGET CELLS 0; TEAR DROP CELLS 0; TOXIC GRANULATION 0
[2022-04-20] MEDS ORDERED: LORazepam 2 MG/ML SDV VIAL IVPUSH ONE (16:00)
[2022-04-20] MEDS: INSULIN (LEVEMIR) 100 UNITS/ML UNITS SQ SCH (21:52)
[2022-04-21] MEDS: SODIUM CHLORIDE 1,000 ML IV SCH ×2 (05:25→23:09)
[2022-04-21] MEDS ORDERED: INSULIN (NOVOLOG) ASPART 100 UNITS/ML 10ML VIAL ONE ×3 (06:18→20:51)
[2022-04-21] MEDS: glyBURIDE 5 MG TABLET PO SCH (06:20)
[2022-04-21] MEDS: INSULIN SLIDING SCALE (NOVOLOG) 1 VIAL SQ SCH ×3 (06:21→17:04)
[2022-04-21] MEDS: METHOCARBAMOL 500 MG TABLET PO SCH ×2 (10:29→21:14)
[2022-04-21] MEDS: INSULIN (LEVEMIR) 100 UNITS/ML UNITS SQ SCH ×2 (10:30→21:13)
[2022-04-21] MEDS: LISINOPRIL 10 MG TABLET PO SCH (10:30)
[2022-04-21] MEDS ORDERED: LORazepam 2 MG TABLET PO PRN (10:36)
[2022-04-21] MEDS ORDERED: LORazepam 1 MG TABLET PO PRN (10:53)
[2022-04-21] MEDS: NYSTATIN/TRIAMCINOLONE TOPICAL CREAM 15 GM TUBE TP SCH (21:18)
[2022-04-22] MEDS ORDERED: LORATADINE 10 MG TABLET PO ONE (01:41)
[2022-04-22] MEDS ORDERED: INSULIN (NOVOLOG) ASPART 100 UNITS/ML 10ML VIAL ONE (05:59)
[2022-04-22] MEDS: glyBURIDE 5 MG TABLET PO SCH (06:01)
[2022-04-22] MEDS: INSULIN SLIDING SCALE (NOVOLOG) 1 VIAL SQ SCH ×3 (06:04→16:44)
[2022-04-22] MEDS: METHOCARBAMOL 500 MG TABLET PO SCH (10:13)
[2022-04-22] MEDS: LISINOPRIL 10 MG TABLET PO SCH (10:13)
[2022-04-22] MEDS: INSULIN (LEVEMIR) 100 UNITS/ML UNITS SQ SCH (10:13)
[2022-04-22] MEDS: SODIUM CHLORIDE 1,000 ML IV SCH (10:19)
[2022-04-22] MEDS: NYSTATIN/TRIAMCINOLONE TOPICAL CREAM 15 GM TUBE TP SCH (10:23)
[2022-04-22 10:57] LABS: BASO % 0.5 % (0-2.0); EOS % 2.9 % (0-4.5); HEMATOCRIT 40.3 % (32.4-45.2); HEMOGLOBIN 13.4 GM/dL (10.7-15.3); LYMPH % 24.9 % (8-40); MCH 28.9 pg (25.7-33.7); MCHC 33.4 g/dl (32.0-36.0); MEAN CELL VOLUME 86.7 fl (80-96); MEAN PLT VOLUME 8.8 fl (7.5-11.1); MONO % 3.8 % (3.8-10.2); NEUT % 67.9 % (42.8-82.8); PLATELET COUNT 280 10^3/uL (134-434); RBC 4.65 M/mm3 (3.60-5.2); RDW 13.4 % (11.6-15.6); WHITE BLOOD COUNT 10.6 K/mm3 (4.0-10.0)
[2022-04-22 11:13] LABS: CALCIUM 8.6 mg/dL (8.5-10.1)
[2022-04-22 11:14] LABS: ALBUMIN 3.1 g/dl (3.4-5.0); BLOOD UREA NITROGEN 7.1 mg/dL (7-18); MAGNESIUM 2.2 mg/dL (1.8-2.4)
[2022-04-22 11:16] LABS: CREATININE 0.5 mg/dL (0.55-1.3); PHOSPHOROUS 3.2 mg/dL (2.5-4.9)
[2022-04-22 11:18] LABS: BILIRUBIN,TOTAL 0.4 mg/dL (0.2-1); TOT PROT 6.7 g/dl (6.4-8.2)
[2022-04-22 14:52] VITALS: BP 149/98; PULSE 85; TEMP 98.3
== END 2022-04-22 21:38 | disposition left against medical advice (07) | DRG 532 ==
LOC: JER 22:02 → JERBED 04-20 05:36 → J6S 04-20 08:45
PROVIDERS: ADMIT Hospitalist; ATTEND Internal Medicine
DX: N83.8 Other noninflammatory disorders of ovary, fallopian tube and broad ligament (principal); I10 Essential (primary) hypertension; B37.3 Candidiasis of vulva and vagina; E11.65 Type 2 diabetes mellitus with hyperglycemia; J45.909 Unspecified asthma, uncomplicated; R19.04 Left lower quadrant abdominal swelling, mass and lump; R11.2 Nausea with vomiting, unspecified; R10.32 Left lower quadrant pain; E66.8 Other obesity; Z68.30 Body mass index [BMI] 30.0-30.9, adult
CPT/HCPCS: 0241U-QW; 36415; 71045-TC-FY; 72195-TC; 74177-TC; 74181-TC; 76705-TC; 76830-TC; 80048; 80053; 81003; 82378; 82962; 83036; 83690; 83735; 84100; 84484; 84703; 85025; 86300; 86301; 86304; 87077; 87086; 93005; 93010; 99285-25; C9803-CS; Q9967; U0003; U0005

== ENCOUNTER 2023-03-24 04:58 | Day surgery (SDC) | payer OTHER ==
[2023-03-23 09:55] VITALS: BMI 35.9
[2023-03-24 08:47] VITALS: TEMP 98
[2023-03-24 09:41] VITALS: BP 122/70; PULSE 64; RESP 18
== END 2023-03-24 09:35 | disposition home or self-care (01) ==
LOC: JASU-ENDO 04:58
PROVIDERS: ATTEND Student in an Organized Health Care Education/Training Program
PROC: 0DBH8ZX Excision of Cecum, Via Natural or Artificial Opening Endoscopic, Diagnostic (ICD-10-PCS; principal; 2023-03-24 08:00)
DX: D12.0 Benign neoplasm of cecum (principal); K57.30 Diverticulosis of large intestine without perforation or abscess without bleeding
CPT/HCPCS: 82962; 88305-TC